=== PATIENT | female | born 1950 | race Asian ===

== ENCOUNTER 2020-07-18 19:23 | Emergency (ER) | payer MEDICAID ==
[~2020-07-18] VITALS: Ht 157.5 cm; Wt 123.7 kg
[2020-07-18] MEDS ORDERED: GABA-533 MT (19:42)
[2020-07-18] MEDS ORDERED: METF-874 MT (19:43)
[2020-07-18] MEDS ORDERED: ATOR10TA69 MT (19:44)
[2020-07-18] MEDS ORDERED: FURO-152 MT (19:45)
[2020-07-18] MEDS ORDERED: ASPI-1497 MT (19:46)
[2020-07-18] MEDS ORDERED: LISI40TA13 MT (19:47)
[2020-07-18] MEDS ORDERED: AMLO10TA80 MT (19:50)
[2020-07-18] MEDS ORDERED: NOVOLIN (19:50)
[2020-07-18 22:56] LABS: CLARITY URINE CLOUDY (CLEAR); COLOR URINE RED (YELLOW); KETONES URINE NEGATIVE (NEGATIVE); LEUKOCYTE ESTERASE URINE TRACE (NEGATIVE); NITRITE URINE NEGATIVE (NEGATIVE); OCCULT BLOOD URINE 3+ (NEGATIVE); PH URINE 7.5 (4.5-8.0); PROTEIN URINE 1+ (NEGATIVE); SPECIFIC GRAVITY URINE 1.012 (1.005-1.030)
[2020-07-18 22:57] LABS: BASOPHILS % 2.1 % (0.0-2.0); EOSINOPHILS % 2.2 % (0.0-5.0); HEMOGLOBIN. 12.3 g/dL (12.0-16.0); LYMPHOCYTES % 22.9 % (20.0-50.0); MEAN CORPUSCULAR HEMOGLOBIN 28.1 pg (28.0-32.0); MEAN CORPUSCULAR VOLUME 86.8 fL (81.0-99.0); MEAN PLATELET VOLUME 8.5 fl (7.4-10.4); MONOCYTES % 9.3 % (2.0-8.0); NEUTROPHILS % 63.5 % (40.0-76.0); PLATELET 328 x1000/uL (130-400); RED BLOOD CELL COUNT 4.37 mill/uL (4.2-5.4); RED CELL DISTRIBUTION WIDTH 15.5 % (11.6-14.6)
[2020-07-18 23:02] LABS: CHLORIDE 105 mEq/L (98-107)
[2020-07-19] MEDS ORDERED: CEPHALEXIN 250MG CAPSULE PO ONE (00:30)
[2020-07-19] MEDS ORDERED: CEPH250C2 MT (00:36)
[2020-07-19 01:00] VITALS: BP 140/71
== END 2020-07-19 01:00 | disposition home or self-care (01) ==
LOC: ER 19:23
DX: N39.0 Urinary tract infection, site not specified (principal); K62.5 Hemorrhage of anus and rectum; R60.9 Edema, unspecified; E11.9 Type 2 diabetes mellitus without complications; I10 Essential (primary) hypertension; F17.290 Nicotine dependence, other tobacco product, uncomplicated; Z98.890 Other specified postprocedural states; Z90.49 Acquired absence of other specified parts of digestive tract; Z79.899 Other long term (current) drug therapy
CPT/HCPCS: 36415; 71045; 80053; 81003; 83880; 84484; 85025; 93005; 93970; 99285